=== PATIENT | female | born 2005 | race Caucasian/White ===

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

== ENCOUNTER 2024-02-11 23:10 | Emergency (ER) | payer OTHER ==
[2024-02-11 23:23] VITALS: BP 112/73; PULSE 79; RESP 16; TEMP 98; BMI 31.1
[2024-02-11] MEDS ORDERED: NAPROXEN 500 MG TABLET ONE (23:27)
[2024-02-11] MEDS: NAPROXEN 500 MG TABLET PO ONE (23:29)
== END 2024-02-11 23:39 | disposition home or self-care (01) ==
LOC: FER 23:10
DX: S13.4XXA Sprain of ligaments of cervical spine, initial encounter (principal); V49.50XA Passenger injured in collision with unspecified motor vehicles in traffic accident, initial encounter
CPT/HCPCS: 99283-25